=== PATIENT | female | born 1985 ===

== ENCOUNTER 2018-09-06 15:02 | Outpatient (CLI) | payer OTHER ==
[~2018-09-06 15:02] MED LIST: IRON325 MG PO; [UNRECOGNIZED DRUG - OTHER] PO
== END 2018-09-06 15:13 | disposition home or self-care (01) ==
LOC: LAB 15:02
DX: R50.9 Fever, unspecified (principal)

== ENCOUNTER 2019-04-26 13:15 | Outpatient (CLI) | payer OTHER | END 2019-04-26 13:30 | disposition home or self-care (01) | LOC: LAB 13:15 | DX: J11.1 Influenza due to unidentified influenza virus with other respiratory manifestations (principal) ==